=== PATIENT | male | born 2000 | race African-American/Black ===

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

== ENCOUNTER 2019-08-12 14:17 | Emergency (ER) | payer SELFPAY ==
[~2019-08-12] VITALS: Ht 182.9 cm; Wt 72.1 kg
[2019-08-12 14:45] VITALS: BP 143/79
[2019-08-12] MEDS ORDERED: KETOROLAC 30 MG/ML VIAL. IM STA (15:12)
[2019-08-12] MEDS ORDERED: PROCHLORPERAZINE 10 MG/2 ML VIAL. IM ONE (15:15)
[2019-08-12] MEDS ORDERED: LIDOCAINE 2% 20 ML VIAL. IJ ONE (15:15)
[2019-08-12] MEDS ORDERED: diphenhydrAMINE 50 MG/ML VIAL IM ONE (15:15)
--- NOTE | 2019-08-12 15:24 | PHYS DOC ---
Past Medical History Past Medical History: Asthma (BENJAMIN GRANADOS APRN) Past Surgical History: No Surgical History (BENJAMIN GRANADOS APRN) Alcohol Use: None Drug Use: None (BENJAMIN GRANADOS APRN) Attending Signature I have participated in the care of this patient and I have reviewed and agree with all pertinent clinical information above including history, exam, and recommendations. (PIPER WALLACE MD) Adult General Chief Complaint Chief Complaint: HEADACHE HPI HPI Patient is a 18 year old male presents to Emergency Department for headache has been ongoing since 8 AM. The patient states he's also light sensitivity and that his right hand feels numb. The patient states he has a history of headaches but it's never been this bad. (BENJAMIN GRANADOS APRN) Review of Systems Review of Systems Constitutional: Denies fever or chills [] Eyes: Reports light sensitivity. Denies change in visual acuity, redness, or eye pain [] HENT: Denies nasal congestion or sore throat [] Respiratory: Denies cough or shortness of breath [] Cardiovascular: No additional information not addressed in HPI [] GI: Denies abdominal pain, nausea, vomiting, bloody stools or diarrhea [] : Denies dysuria or hematuria [] Musculoskeletal: Denies back pain or joint pain [] Integument: Denies rash or skin lesions [] Neurologic: Reports headache, Denies focal weakness but reports sensory changes in R hand. Endocrine: Denies polyuria or polydipsia Complete systems were reviewed and found to be within normal limits, except as documented in this note. (BENJAMIN GRANADOS APRN) Current Medications Current Medications Current Medications Medications (Trade) Dose Ordered Sig/Ray Start Time Stop Time Status Last Admin Dose Admin Diphenhydramine HCl (Benadryl) 50 mg 1X ONCE 08/12/19 15:15 08/12/19 15:21 DC 08/12/19 15:32 50 MG Ketorolac Tromethamine (Toradol 30mg Vial) 30 mg 1X STAT 08/12/19 15:12 08/12/19 15:21 DC 08/12/19 15:32 30 MG Lidocaine HCl 20 ml 1X ONCE 08/12/19 15:15 08/12/19 15:21 DC 08/12/19 16:16 20 ML Prochlorperazine Edisylate (Compazine) 10 mg 1X ONCE 10/22/19 15:15 08/12/19 15:21 DC 08/12/19 15:32 10 MG (PIPER WALLACE MD) Allergies Allergies Allergies Coded Allergies Type Severity Reaction Last Updated Verified No Known Drug Allergies 02/01/17 No (PIPER WALLACE MD) Physical Exam Physical Exam Constitutional: Well developed, well nourished, no acute distress, non-toxic appearance. [] HENT: Normocephalic, atraumatic, bilateral external ears normal, oropharynx moist, no oral exudates, nose normal. [] Eyes: PERRLA, EOMI, conjunctiva normal, no discharge. [] Neck: Normal range of motion, no tenderness, supple, no stridor. [] Cardiovascular:Heart rate regular rhythm, no murmur [] Lungs & Thorax: Bilateral breath sounds clear to auscultation [] Abdomen: Bowel sounds normal, soft, no tenderness, no masses, no pulsatile masses. [] Skin: Warm, dry, no erythema, no rash. [] Back: No tenderness, no CVA tenderness. [] Extremities: No tenderness, no cyanosis, no clubbing, ROM intact, no edema. [] Neurologic: Alert and oriented X 3, normal motor function, normal sensory function, no focal deficits noted. [] Psychologic: Affect normal, judgement normal, mood normal. [] (BENJAMIN GRANADOS APRN) Current Patient Data Vital Signs Vital Signs Date Time Temp Pulse Resp B/P (MAP) Pulse Ox O2 Delivery O2 Flow Rate FiO2 08/12/19 14:45 97.0 47 16 143/79 (100) 98 Room Air 97.0 (PIPER WALLACE MD) EKG EKG [] (BENJAMIN GRANADOS APRN) Radiology/Procedures Radiology/Procedures [][facility] [address] [place] [address] IMAGING REPORT Signed PATIENT: ARBEN PHELAN ACCOUNT: [id number] : 2000 LOCATION: ER AGE: 18 SEX: M EXAM STATUS: REG ER ORD. PHYSICIAN: BENJAMIN GRANADOS APRN REASON: headache PROCEDURE: CT HEAD WO CONTRAST EXAM: Head CT without contrast. HISTORY: Headache. TECHNIQUE: Computed tomographic images of the head were obtained without contrast.. *One or more of the following individualized dose reduction techniques were utilized for this examination: 1. Automated exposure control. 2. Adjustment of the mA and/or kV according to patient size. 3. Use of iterative reconstruction technique. COMPARISON: None. FINDINGS: There is no acute or subacute extra-axial or intraparenchymal hemorrhage. There is no mass effect or midline shift. There is no hydrocephalus. The swain-white matter differentiation pattern is intact. There is posterior right ethmoid sinus mucosal thickening. 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 The visualized portions the orbits are unremarkable. The mastoid air cells are clear. There is no suspicious calvarial lesion. IMPRESSION: No acute intracranial findings. Electronically signed by: Ivanna Meyer MD (08/12/2019 3:59 PM) [facility] DICTATED and SIGNED BY: IVANNA MEYER MD DATE: 08/12/19 155 (BENJAMIN GRANADOS APRN) Course & Med Decision Making Course & Med Decision Making Pertinent Labs and Imaging studies reviewed. (See chart for details) Will get CT, and give supportive care. Appears to be a migraine. CT is negative. Gave intranasal Lidocaine and Headache cocktail which dropped his headache to 4/10 and helped his symptoms disappear. Will d/c home. (BENJAMIN GRANADOS APRN) Dragon Disclaimer Dragon Disclaimer This electronic medical record was generated, in whole or in part, using a voice recognition dictation system. (BENJAMIN GRANADOS APRN) Departure Departure Impression: Primary Impression: Headache Disposition: 01 HOME, SELF-CARE Condition: STABLE Referrals: UNKNOWN PCP NAME (PCP) Patient Instructions: General Headache Without Cause Additional Instructions: Thank you for visiting [facility]. We appreciate you trusting us with your care. If any additional problems come up don't hesitate to return to visit us. Please follow up with your primary care provider so they can plan additional care if needed and know about the problem that you had. If symptoms worsen come back to the Emergency Department. Any concerning symptoms that start such as chest pain, shortness of air, weakness or numbness on one side of the body, running high fevers or any other concerning symptoms return to the ER. Problem Qualifiers Primary Impression: Headache Headache type: unspecified Headache chronicity pattern: acute headache Intractability: not intractable Qualified Codes: R51 - Headache BENJAMIN GRANADOS APRN Aug 12, 2019 15:24 PIPER WALLACE MD Aug 15, 2019 06:15
--- NOTE | 2019-08-12 16:02 | RAD ---
EXAM: Head CT without contrast. HISTORY: Headache. TECHNIQUE: Computed tomographic images of the head were obtained without contrast.. *One or more of the following individualized dose reduction techniques were utilized for this examination: 1. Automated exposure control. 2. Adjustment of the mA and/or kV according to patient size. 3. Use of iterative reconstruction technique. COMPARISON: None. FINDINGS: There is no acute or subacute extra-axial or intraparenchymal hemorrhage. There is no mass effect or midline shift. There is no hydrocephalus. The swain-white matter differentiation pattern is intact. There is posterior right ethmoid sinus mucosal thickening. 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 The visualized portions the orbits are unremarkable. The mastoid air cells are clear. There is no suspicious calvarial lesion. IMPRESSION: No acute intracranial findings. Electronically signed by: Ivanna Hein MD (08/12/2019 3:59 PM) [place] [id number]
== END 2019-08-12 16:25 | disposition home or self-care (01) ==
LOC: ER 14:17
DX: R51 Headache (principal); R20.0 Anesthesia of skin; J45.909 Unspecified asthma, uncomplicated
CPT/HCPCS: 70450; 96372; 99284; J0780; J1200; J1885; J2001